=== PATIENT | male | born 1950 | race Caucasian/White ===

== ENCOUNTER 2016-11-14 23:14 | Emergency (ER) | payer MEDICARE ==
[~2016-11-14] VITALS: Ht 170.2 cm; Wt 88.0 kg
[2016-11-14 23:21] VITALS: BP 118/68; PULSE 85; RESP 24; O2SAT 100
[2016-11-14] MEDS ORDERED: 0.9% Sodium Chloride 1,000 ML IV ONE (23:28)
[2016-11-14 23:30] VITALS: BP 105/58; PULSE 85; RESP 20; O2SAT 94
[2016-11-14 23:45] VITALS: RESP 20; O2SAT 95
[2016-11-14 23:56] LABS: BASOPHILS % (AUTO) 0.4 % (0-3); EOSINOPHILS % (AUTO) 2.4 % (0-5); MONOCYTES % (AUTO) 9.8 % (4-12); Mean Corpuscular Hemoglobin 30.1 pg (27.0-35.0); Mean Corpuscular Volume 90.4 fL (81-100); Platelet Count 271 bil/L (150-400)
--- NOTE | 2016-11-14 23:56 | ED.REPORT ---
HPI-Dyspnea / Wheezing Date of Service Nov 14, 2016 ED Provider: Darwin Babin MD Pt is a 66 year old male with a hx of heart attack x5, cardiac arrest x2, and a pacemaker on Plavix presenting to the ED via EMS complaining of SOB and anxiety onset when he was at [facility]. He reports that it was like he had something stuck in his chest, so he coughed, and brought up sputum. He states that he felt fine all day before the episode. Denies any chest pain, elbow pain (which he has had when he had his previous heart attacks), or any other symptoms at this time. Pt reports drinking a few beers tonight. Medics gave him 8 of Versed en route and report that his SATS were in the mid 80s. Nursing Notes Stated Complaint: DIFFICULTY BREATHING Chief Complaint: Respiratory Distress Nursing Notes Reviewed: Yes Scheduled Aspirin (Aspirin) 325 Mg Tablet 325 MG PO DAILY Atorvastatin Calcium (Atorvastatin Calcium) 10 Mg Tablet 2.5 MG PO DAILY Clopidogrel (Clopidogrel) 75 Mg Tablet 75 MG PO DAILY Furosemide (Furosemide) 80 Mg Tab 80 MG PO DAILY Losartan Potassium (Losartan Potassium) 25 Mg Tablet 25 MG PO BID Metoprolol Succinate ER (Metoprolol Succinate ER) 25 Mg Tab.er.24h 25 MG PO BID Pantoprazole DR (Pantoprazole DR) 40 Mg Tablet.dr 40 MG PO DAILY Spironolactone (Spironolactone) 25 Mg Tablet 0.5 TAB PO DAILY Scheduled PRN Hydroxyzine Pamoate (HydrOXYzine Pamoate) 25 Mg Capsule 25 MG PO TIDAC PRN PRN For Anxiety General Time Seen by MD: 23:23 Chief Complaint Shortness of breath Hx Obtained From: Patient Arrived By: Ambulance Sudden in Onset?: Yes Onset Occurred: Just prior to arrival Symptom Duration: Since onset Severity: Current: No pain currently Severity: Maximum: No pain Recent Healthcare: No recent doctor visit, No recent hospitalization Similar Sx Previous: No Past Medical History Past Medical History Reports Cardiac ablation, pacemaker, on Plavix, heart attack x5, cardiac arrest x2 Past Surgical History Pacemaker insertion Smoking History Unknown if Ever Smoker Social History Alcohol Use: "Social" Ambulatory Status Independent Review of Systems Constitutional: Denies: Fever, Weakness - generalized Respiratory: Reports: Shortness of breath Cardiovascular: Denies: Chest pain Musculoskeletal: Denies: Joint pain (Elbow) Complete sys rev & neg: except as marked. Psychiatric: Reports: Anxiety Physical Exam Initial Vital Signs Vital Signs (First) Date Time Temp Pulse Resp B/P Pulse Ox O2 Delivery O2 Flow Rate FiO2 11/14/16 23:21 36.5 85 24 118/68 100 Non-Rebreather 15 Initial VS: Reviewed, Vital signs normal Head / Eyes: Atraumatic, Normocephalic, PERRL ENT: Mucous membranes moist, Conjunctiva normal, No scleral icterus Abdomen / GI: Soft, Non-tender, No guarding, No rebound, No distention Extremities: Vascular intact, Neuro intact, No swelling, No tenderness Skin: Warm, Dry, No cyanosis Neurologic: Alert, Oriented, Nonfocal Psychiatric: Mood/affect normal, Behavior normal, Normal thought content General/Constitutional: Awake, Alert Neck: Atraumatic, Supple Respiratory / Chest: No respiratory distress Few excretory wheezes more on left than right Cardiovascular: Heart rate NL, Regular rhythm, Heart sounds NL Interpretation & Diagnostics Lab Results Interpretation Result Diagram: 11/14/16231911/14/16 232 Test 11/14/16 23:20 11/15/16 00:10 11/15/16 00:50 White Blood Count 8.4th/mm3 (3.8-10.1) Red Blood Count 5.19mil/mm3 (4.40-5.80) Hemoglobin 15.6g/dL (13.8-17.2) Hematocrit 46.9% (41.0-50.0) Mean Corpuscular Volume 90.4fL (81-100) Mean Corpuscular Hemoglobin 30.1pg (27.0-35.0) Mean Corpuscular Hemoglobin Concent 33.3% (32.0-37.0) Red Cell Distribution Width 13.7% (12.3-15.4) Platelet Count 271bil/L (150-400) Neutrophils (%) (Auto) 54.0% (40-74) Lymphocytes (%) (Auto) 32.9% (14-46) Monocytes (%) (Auto) 9.8% (4-12) Eosinophils (%) (Auto) 2.4% (0-5) Basophils (%) (Auto) 0.4% (0-3) Prothrombin Time 10.0sec (8.1-12.5) Prothromb Time International Ratio 0.94ratio D-Dimer < 0.50mg/L FEU (<0.50) Sodium Level 143mEq/L (134-144) Potassium Level 3.6mEq/L (3.5-5.2) Chloride Level 102mEq/L (97-108) Carbon Dioxide Level 21mmol/L (18-29) Blood Urea Nitrogen 23mg/dL (8-27) Creatinine 1.08mg/dL (0.76-1.27) Estimat Glomerular Filtration Rate 73mL/min (>59) Glucose Level 142mg/dL (60-99) Calcium Level 9.1mg/dL (8.5-10.1) Magnesium Level 2.2mg/dL (1.6-2.6) Total Bilirubin 0.4mg/dL (0.0-1.2) Aspartate Amino Transf (AST/SGOT) 23U/L (0-50) Alanine Aminotransferase (ALT/SGPT) 16U/L (0-44) Alkaline Phosphatase 78U/L (25-160) Troponin T 0.010ug/L (0.0-0.011) Pro-B-Type Natriuretic Peptide 1658pg/mL (0-376) Total Protein 7.6g/dL (6.4-8.4) Albumin 4.4g/dL (3.4-5.0) Lactic Acid Level 1.8mmol/L (0.4-2.0) Urine Color Straw (YELLOW) Urine Appearance Hazy (CLEAR,HAZY) Urine pH 5.0 (5.0-8.0) Urine Specific [place] 1.025 (1.003-1.035) Urine Protein Negativemg/dL (NEG,TRACE) Urine Glucose (UA) Negativemg/dL (NEGATIVE) Urine Ketones Negativemg/dL (NEGATIVE) Urine Occult Blood Negative (NEGATIVE) Urine Nitrite Negative (NEGATIVE) Urine Bilirubin Negative (NEGATIVE) Urine Urobilinogen Normalmg/dL (NORMAL) Urine Leukocyte Esterase Negative (NEGATIVE) Urine RBC 0-2/hpf (0-2) Urine WBC 0-5/hpf (0-5) Urine Epithelial Cells Occasional/hpf (NONE-MOD) Urine Crystals Uric acid crystals (NONE Urine Bacteria Few/hpf (NONE-FEW) Urine Hyaline Casts None/lpf (NONE) Urine Granular Casts None seen (NONE SEEN) Urine Waxy Casts None seen (NONE SEEN) Urine Red Blood Cell Casts None seen (NONE SEEN) Urine White Blood Cell Casts None seen (NONE SEEN) Urine Mucus Present (None Seen) Urine Trichomonas None seen (NONE SEEN) Urine Yeast None (NONE SEEN) Urinalysis Comment None Urine Culture Reflexed Not indicated Lab values outside NL range: no clinical significance. Lab Results Interpretation: Elevated BNP, normal troponin, normal dimer, normal lactic acid. ECG Interpretation ECG Interpretation: Sinus rhythm. Probable left atrial enlargement. IVCD, consider atypical RBBB. Extensive anterior infarct, old. Time: 23:21 Interpreted by: ED physician Normal ECG Interpretation: Normal rate (86) X-Ray Chest Interpretation Chest Xray Interpretation: Increased vascular marking consistent with CHF Interpretation / Wet Read by: Wet read ED physician Re-Eval/Medical Decision Med Decision/Clinical Course Mild fluid retention secondary to CHF exacerbation. There was definitely an overlay of anxiety. He is being discharged home with increased diuretic. He is to follow-up with his regular doctor. Re-Evaluation/Progress #1: Time of Eval: 23:55 Patient Status: Condition improved Re-Evaluation/Progress Note: Discussed history and performed physical exam. Re-Evaluation/Progress #2: Time of Eval: 01:28 Patient Status: Condition improved Re-Evaluation/Progress Note: Discussed x ray results and plan for discharge. Pt understands and agrees. Counseled Regarding: Diagnosis, Lab results, Need for follow-up, When/why to return to ED Discharge & Departure Impression: Primary Impression: CHF exacerbation Congestive heart failure type: unspecified congestive heart failure type Qualified Code: I50.9 - Heart failure, unspecified Additional Impression: Anxiety Disposition: Home Discharge Condition All VS Reviewed: Yes Condition: Improved Additional Instructions: It appears that your respiratory distress is due to a little fluid overloaded your lungs. Increase your furosemide (Lasix): 2 pills today and then 1-1/2 pills daily. Talk to your regular doctor about ongoing dosing. Hydroxyzine 25 mg by mouth 3 times a day when necessary anxiety, #10 prescription written. Talk to your regular doctor about refilling this medicine if it is helpful. Scribe Attestation Portions of this note were transcribed by Abilio Meyer. I, Dr. Babin personally performed the history, physical exam and medical decision-making; I reviewed and confirmed the accuracy of the information in the transcribed note. Signed by: Jane Fernández, 11/15/2016 at 0145. Darwin Babin MD Nov 14, 2016 23:56 ABILIO MEYER Nov 14, 2016 23:57
[2016-11-15] VITALS: BP 121/60; PULSE 80; RESP 18; O2SAT 94
[2016-11-15] MEDS ORDERED: Albuterol-Ipratropium 3 mL Inhalation Solution NEB ONE
[2016-11-15 00:18] LABS: D-Dimer < 0.50 mg/L FEU (<0.50); INR 0.94 ratio
[2016-11-15 00:22] VITALS: PULSE 73; RESP 14; O2SAT 95
[2016-11-15] MEDS ORDERED: PANT40TA3 PO (00:52)
[2016-11-15] MEDS ORDERED: ATOR10TA66 PO (00:52)
[2016-11-15] MEDS ORDERED: ASPI325T32 PO (00:52)
[2016-11-15] MEDS ORDERED: FRSM80T PO (00:52)
[2016-11-15] MEDS ORDERED: LOSA25TA21 PO (00:52)
[2016-11-15] MEDS ORDERED: METO25TA99 PO (00:52)
[2016-11-15] MEDS ORDERED: SPIR25TA3 PO (00:52)
[2016-11-15] MEDS ORDERED: CLOP75TA28 PO (00:52)
[2016-11-15 00:56] LABS: Magnesium 2.2 mg/dL (1.6-2.6); TROPONIN T 0.01 ug/L (0.0-0.011)
[2016-11-15] MEDS ORDERED: hydrOXYzine Pamoate 25 mg Capsule PO ONE (01:30)
[2016-11-15] MEDS ORDERED: HYDR-3797 PO (01:42)
[2016-11-15 01:49] LABS: APPEARANCE,URINE HAZY (CLEAR,HAZY); COLOR,URINE STRAW (YELLOW); OCCULT BLOOD,URINE NEGATIVE (NEGATIVE); UROBILINOGEN,URINE NORMAL (NORMAL)
[2016-11-15 01:59] VITALS: BP 133/59; PULSE 81; RESP 18; O2SAT 94
--- NOTE | 2016-11-15 11:10 | DRSVH ---
PROCEDURE: X-RAY CHEST ONE VIEW, PORTABLE ([id number]) INDICATIONS: dyspnea TECHNIQUE: One view of the chest was acquired. COMPARISON: None. FINDINGS: Surgical changes and devices: There is a cardiac defibrillator in expected position. Lungs and pleura: Bilateral interstitial infiltrates suspicious for pulmonary edema. Infiltrate in t he left lower lung is more prominent. No pleural effusions or pneumothorax. Mediastinum: Mediastinal contours appear normal. Heart size is normal. Bones and chest wall: No suspicious bony lesions. Overlying soft tissues appear unremarkable. IMPRESSION: 1. Bilateral interstitial infiltrates suspicious for pulmonary edema. 2. Accompanying infiltrate in left lung may be superimposed pneumonia. Clinical correlation suggested . Dictated by: Monse Potts M.D. on 11/15/2016 at 11:07 Approved by: Monse Potts M.D. on 11/15/2016 at 11:08
== END 2016-11-15 02:00 | disposition home or self-care (01) ==
LOC: EDBD 23:14 → SED 23:14
DX: I50.9 Heart failure, unspecified (principal); F41.9 Anxiety disorder, unspecified; Z95.0 Presence of cardiac pacemaker; Z79.82 Long term (current) use of aspirin
CPT/HCPCS: 36415; 71010; 80053; 81000; 83605; 83735; 83880; 84484; 85025; 85378; 85610; 93005; 94664; 99285; J7620; Q0177